=== PATIENT | male | born 1940 | race Caucasian/White ===

== ENCOUNTER 2017-06-11 09:55 | Day surgery (SDC) | payer OTHER ==
[~2017-06-11] VITALS: Ht 182.9 cm; Wt 99.8 kg
[~2017-06-11 09:55] MED LIST: ATOR10; FISH1000 PO; GLYB2.5; LISI5 PO; METF500; MULTIVITAMIN; NEW MED; OMEP20ER PO; PIOG15; SIMV20 PO
== END 2017-06-11 22:36 | disposition home or self-care (01) ==
LOC: ORSCMMR 09:55 → ORD 11:00 → ORSCMMR 22:36
PROVIDERS: Internal Medicine Gastroenterology
PROC: 0DBE8ZX Excision of Large Intestine, Via Natural or Artificial Opening Endoscopic, Diagnostic (ICD-10-PCS; principal; 2017-06-11 11:00)
PROC: 0DBN8ZX Excision of Sigmoid Colon, Via Natural or Artificial Opening Endoscopic, Diagnostic (ICD-10-PCS; principal; 2017-06-11 11:00)
PROC: 0DB48ZX Excision of Esophagogastric Junction, Via Natural or Artificial Opening Endoscopic, Diagnostic (ICD-10-PCS; principal; 2017-06-11 11:00)
PROC: 0DB68ZX Excision of Stomach, Via Natural or Artificial Opening Endoscopic, Diagnostic (ICD-10-PCS; principal; 2017-06-11 11:00)
PROC: 0DBB8ZX Excision of Ileum, Via Natural or Artificial Opening Endoscopic, Diagnostic (ICD-10-PCS; principal; 2017-06-11 11:00)
DX: K22.70 Barrett's esophagus without dysplasia (principal); K21.9 Gastro-esophageal reflux disease without esophagitis; K44.9 Diaphragmatic hernia without obstruction or gangrene; K51.90 Ulcerative colitis, unspecified, without complications; K63.5 Polyp of colon; K57.30 Diverticulosis of large intestine without perforation or abscess without bleeding; E11.9 Type 2 diabetes mellitus without complications; I10 Essential (primary) hypertension; G47.33 Obstructive sleep apnea (adult) (pediatric); Z79.899 Other long term (current) drug therapy; Z79.82 Long term (current) use of aspirin
CPT/HCPCS: 82947; J2250; J3010; J7120

== ENCOUNTER 2018-12-12 12:01 | Day surgery (SDC) | payer OTHER ==
[~2018-12-12] VITALS: Ht 177.8 cm; Wt 92.8 kg
[~2018-12-12 12:01] MED LIST changes: +ASCO500 PO; +Aspir 8181 MG PO; +CO Q-10100 MG PO; +GABA300 PO; +GLIM2 PO; +Glucophage1000 MG PO; +IRBE150 PO; +MAGNESIUM250 MG PO; -METF500; +SITA100T2 PO; +Vision Vitamin1 EACH PO; +ZINC50 MG PO
--- NOTE | 2018-12-12 12:20 | NUR ---
Ambulatory in Day Surgery. History, Chart, Medications and Allergies reviewed before start of procedure.Lungs clear T/O to Auscultation. Patient States Post-Procedure ride home has been arranged.
--- NOTE | 2018-12-12 13:22 | NUR ---
INFORMED NEED TO CLIP PATIENT UP TO NIPPLE LINE AND DOWN TO SHAFT OF PENIS SO PATIENT RE CLIPPED AND CHLORA PREPPED
--- NOTE | 2018-12-12 14:01 | NUR ---
DENTURES AND GLASSES IN PACU PATIENT DID NOT BRING IN HEARING AIDS THEY ARE AT HOME PER PATIENT
--- NOTE | 2018-12-12 17:18 | NUR ---
Dressing to procedure site clean, dry, intact with no visible drainage, swelling, erythema or bruising noted.
--- NOTE | 2018-12-12 18:12 | NUR ---
Dressing to procedure site clean, dry, intact with no visible drainage, swelling, erythema or bruising noted. Patient up to Ambulate independently. Gait steady. Discharge instructions reviewed with patient. Patient verbalizes understanding. Copy given to patient to take home. Discharged via wheelchair to private car for ride home.
== END 2018-12-12 18:21 | disposition home or self-care (01) ==
LOC: ORSCMMR 12:01 → ORD 13:30 → ORSCMMR 18:21
PROVIDERS: Surgery
PROC: 8E0W4CZ Robotic Assisted Procedure of Trunk Region, Percutaneous Endoscopic Approach (ICD-10-PCS; principal; 2018-12-12 13:30)
PROC: 0YUA4JZ Supplement Bilateral Inguinal Region with Synthetic Substitute, Percutaneous Endoscopic Approach (ICD-10-PCS; principal; 2018-12-12 13:30)
DX: K40.20 Bilateral inguinal hernia, without obstruction or gangrene, not specified as recurrent (principal); E11.22 Type 2 diabetes mellitus with diabetic chronic kidney disease; I12.9 Hypertensive chronic kidney disease with stage 1 through stage 4 chronic kidney disease, or unspecified chronic kidney disease; N18.3 Chronic kidney disease, stage 3 (moderate); Z79.84 Long term (current) use of oral hypoglycemic drugs; Z87.891 Personal history of nicotine dependence; K21.9 Gastro-esophageal reflux disease without esophagitis; Z79.899 Other long term (current) drug therapy; Z79.82 Long term (current) use of aspirin
CPT/HCPCS: 49650; S2900; 74019; 82947; A9270-GY; C1781; J0690; J1100; J1885; J2370; J2405; J2704; J3010; J7120